=== PATIENT | female | born 1955 | race Caucasian/White ===

== ENCOUNTER 2017-05-14 17:03 | Emergency (ER) | payer OTHER ==
[2017-05-14 17:19] VITALS: BP 136/95
== END 2017-05-14 17:53 | disposition home or self-care (01) ==
LOC: ED 17:03
DX: H66.91 Otitis media, unspecified, right ear (principal)

== ENCOUNTER 2018-03-07 08:27 | Emergency (ER) | payer OTHER ==
[~2018-03-07] VITALS: Ht 160 cm; Wt 76.2 kg
[2018-03-07 08:30] VITALS: Ht 160 cm; Wt 76.2 kg
[2018-03-07 10:15] VITALS: BP 131/83
== END 2018-03-07 10:15 | disposition home or self-care (01) ==
LOC: ED 08:27
DX: K11.20 Sialoadenitis, unspecified (principal)

== ENCOUNTER 2018-09-19 08:24 | Emergency (ER) | payer OTHER ==
[~2018-09-19] VITALS: Ht 160 cm; Wt 74.8 kg
[2018-09-19 08:25] VITALS: Ht 160 cm; Wt 74.8 kg
[2018-09-19 09:51] VITALS: BP 124/96
== END 2018-09-19 09:51 | disposition home or self-care (01) ==
LOC: ED 08:24
DX: B02.9 Zoster without complications (principal)

== ENCOUNTER → 2019-04-06 | Outpatient (CLI) | payer OTHER | END | disposition home or self-care (01) | LOC: RD 10:38 | PROC: BH02ZZZ Plain Radiography of Bilateral Breasts (ICD-10-PCS; principal; 2019-04-06) | DX: Z12.39 Encounter for other screening for malignant neoplasm of breast (principal); Z12.31 Encounter for screening mammogram for malignant neoplasm of breast | CPT/HCPCS: 77067 ==

== ENCOUNTER → 2019-12-12 | Outpatient (CLI) | payer OTHER | END | disposition home or self-care (01) | LOC: RD 12:02 | DX: M79.674 Pain in right toe(s) (principal) ==

== ENCOUNTER → 2019-12-22 | Outpatient (CLI) | payer OTHER ==
[2019-12-22 08:25] LABS: BASOPHIL % 0.4 % (0-2); PLATELET COUNT 306 x10^3mcL (130-400); RED CELL DISTRIBUTION WIDTH 12.6 % (11.5-14.5)
[2019-12-22 08:47] LABS: ALBUMIN 3.4 g/dL (3.4-5.0); ALKALINE PHOSPHATASE 94 U/L (46-116); ALT/SGPT 21 U/L (14-59); AST/SGOT 15 U/L (15-37); BILIRUBIN TOTAL 0.5 mg/dL (0.20-1.00); CALCIUM 8.4 mg/dL (8.5-10.1); CARBON DIOXIDE 25.8 mmol/L (21-32); CHLORIDE SERUM 106 mmol/L (98-107); CREATININE SERUM 0.7 mg/dL (0.6-1.0); GFR1 > 60 mL/min; GLUCOSE SERUM 94 mg/dL (74-106); HDL CHOLESTEROL 51 mg/dL (40-60); POTASSIUM SERUM 4.3 mmol/L (3.5-5.1); SODIUM SERUM 140 mmol/L (136-145); TOTAL PROTEIN, SERUM 6.5 g/dL (6.4-8.2); TRIGLYCERIDES 126 mg/dL (<150)
[2019-12-22 08:49] LABS: CHOLESTEROL 225 mg/dL (<200); CHOLESTEROL/HDL RATIO 4.4
[2019-12-22 11:46] LABS: ERYTHROCYTE SED RATE 16 mm/hr (0-30)
== END | disposition home or self-care (01) ==
LOC: LB 07:21
DX: E04.2 Nontoxic multinodular goiter (principal); E55.9 Vitamin D deficiency, unspecified; R73.03 Prediabetes; M05.9 Rheumatoid arthritis with rheumatoid factor, unspecified